=== PATIENT | male | born 1995 | race American Indian/Alaskan Native ===

== ENCOUNTER 2017-03-07 13:53 | Emergency (ER) | payer MEDICAID, OTHER ==
[2017-03-07 13:57] VITALS: BMI 26.6
[2017-03-07] MEDS ORDERED: Sodium Chloride 0.9% 1,000 ML IV STA (14:03)
[2017-03-07 14:08] VITALS: RESP 20; TEMP 98.5; O2SAT 100
--- NOTE | 2017-03-07 14:16 | ED PDOC ---
Arrival/HPI - General Chief Complaint: Substance Abuse Time Seen by Provider: 03/07/17 13:55 Historian: Patient - History of Present Illness Narrative History of Present Illness (Text): 03/07/17 14:00 A 21 year old male, who denies any significant past medical history, presents to the emergency department via EMS for substance overdose. The patient admits he used marijuana and ecstasy for recreational use. The patient denies any suicidal ideation, homicidal ideation, chest pain, fever, abdominal pain, or any other complaints at this time. Time/Duration: Prior to Arrival Symptom Onset: Sudden Symptom Course: Unchanged Activities at Onset: Significant (substance use ) Context: Home Past Medical History - Provider Review Nursing Documentation Reviewed: Yes - Infectious Disease Hx of Infectious Diseases: None - Psychiatric Hx Substance Use: Yes (weed) - Anesthesia Hx Anesthesia: No Family/Social History - Physician Review Nursing Documentation Reviewed: Yes Family/Social History: No Known Family HX Smoking Status: Heavy Smoker > 10 Cigarettes Daily Hx Alcohol Use: Yes Frequency of alcohol use: Socially Hx Substance Use: Yes (weed) Allergies/Home Meds Allergies/Adverse Reactions: Allergies shrimp Allergy (Severe, Verified 03/07/17 13:57) ANAPHYLAXIS Penicillins Allergy (Verified 03/07/17 13:57) ANGIOEDEMA Home Medications: Home Meds Medication Instructions Recorded Confirmed No Known Home Med 03/07/17 03/07/17 Review of Systems - Physician Review All systems were reviewed & negative as marked: Yes - Review of Systems Constitutional: absent: Fevers Cardiovascular: absent: Chest Pain Gastrointestinal: absent: Abdominal Pain Physical Exam Vital Signs Reviewed: Yes Vital Signs Temp Pulse Resp BP Pulse Ox 03/07/17 16:32 68 20 132/72 100 03/07/17 14:01 98.5 F 116 H 20 150/88 100 Temperature: Afebrile Blood Pressure: Normal Pulse: Tachycardic Respiratory Rate: Normal Appearance: Positive for: Well-Appearing, Non-Toxic, Comfortable Pain Distress: None Mental Status: Positive for: Alert and Oriented X 3 - Systems Exam Head: Present: Atraumatic, Normocephalic Pupils: Present: PERRL Extroacular Muscles: Present: EOMI Conjunctiva: Present: Normal Mouth: Present: Moist Mucous Membranes Neck: Present: Normal Range of Motion Respiratory/Chest: Present: Clear to Auscultation, Good Air Exchange. No: Respiratory Distress, Accessory Muscle Use Cardiovascular: Present: Tachycardic Abdomen: Present: Normal Bowel Sounds. No: Tenderness, Distention, Peritoneal Signs Back: Present: Normal Inspection Upper Extremity: Present: Normal Inspection. No: Cyanosis, Edema Lower Extremity: Present: Normal Inspection. No: Edema Neurological: Present: GCS=15, CN II-XII Intact, Speech Normal Skin: Present: Warm, Dry, Normal Color. No: Rashes Psychiatric: Present: Alert, Oriented x 3, Anxious Medical Decision Making ED Course and Treatment: 03/07/17 14:18 Impression: A 21 year old male with substance abuse. Differential Diagnosis included but are not limited to: Plan: -- EKG -- Chest X-ray -- Ativan, IV Fluids -- Urinalysis -- Reassess and disposition Progress Notes: 03/07/17 14:20 EKG: Ordered, reviewed, and independently interpreted the EKG. Rate : 131 BPM Rhythm : Sinus Tachycardia Interpretation : No ST-segment elevations or depressions, no T-wave inversions, normal intervals. Comparison : No previous EKG for comparison. 03/07/17 18:52 pt observed for 4 hours awake alert, no states feels well. steady gait. no si hi 03/07/17 18:52 - Lab Interpretations Lab Results: 03/07/17 14:00 03/07/17 14:00 Lab Results 03/07/17 14:55: Urine Opiates Screen Negative, Urine Methadone Screen Negative, Ur Barbiturates Screen Negative, Ur Phencyclidine Scrn Negative, Ur Amphetamines Screen Negative, U Benzodiazepines Scrn Negative, U Oth Cocaine Metabols Negative, U Cannabinoids Screen Positive H 03/07/17 14:55: Urine Color Yellow, Urine Appearance Clear, Urine pH 8.0, Ur Specific [place] 1.015, Urine Protein Negative, Urine Glucose (UA) Negative, Urine Ketones Negative, Urine Blood Trace-intact H, Urine Nitrate Negative, Urine Bilirubin Negative, Urine Urobilinogen 0.2, Ur Leukocyte Esterase Negative , Urine RBC 0 - 2, Urine WBC 1 - 3, Ur Epithelial Cells 0 - 2, Urine Bacteria Trace 03/07/17 14:00: Alcohol, Quantitative < 10 03/07/17 14:00: Salicylates < 1 L, Acetaminophen < 10.0 L 03/07/17 14:00: Sodium 140, Potassium 3.2 L, Chloride 102, Carbon Dioxide 22, Anion Gap 19, BUN 6 L, Creatinine 0.8, Est GFR ( Amer) > 60, Est GFR (Non -Af Amer) > 60, Random Glucose 134 H, Calcium 10.2, Total Bilirubin 0.7, AST 35 , ALT 27, Alkaline Phosphatase 80, Total Creatine Kinase 164, Total Protein 8.7 H, Albumin 5.0 H, Globulin 3.7, Albumin/Globulin Ratio 1.4 03/07/17 14:00: WBC 7.3, RBC 4.87, Hgb 15.3, Hct 43.6, MCV 89.5, MCH 31.4, MCHC 35.1, RDW 12.7, Plt Count 202, MPV 11.7 H, Gran % 42.9 L, Lymph % (Auto) 48.5 H , [place] % (Auto) 8.4 H, Eos % (Auto) 0.1 L, Baso % (Auto) 0.1, Gran # 3.14, Lymph # 3.6 H, [place] # 0.6, Eos # 0.0, Baso # 0.01 - RAD Interpretation Radiology Orders: 03/07/17 14:03 CHEST PORTABLE [RAD] Stat - Medication Orders Current Medication Orders: Discontinued Medications Sodium Chloride (Sodium Chloride 0.9%) 1,000 mls @ 999 mls/hr IV .Q1H1M STA Stop: 03/07/17 15:03 Last Admin: 03/07/17 14:16 Dose: 999 mls/hr eMAR Start Stop Document 03/07/17 14:16 [facility] [place] 03/07[place]17 14[place] [facility] [id number][place] Intravenous Solution Start Date 03/07/17 Start Time 14:16 End Date 03/07/17 End time 15:17 Total Infusion Time 61 Lorazepam (Ativan) 1 mg IVP STAT STA PRN Reason: Protocol Stop: 03/07/17 14:10 Last Admin: 03/07/17 14:16 Dose: 1 mg IVP Administration Document 03/07/17 14:16 [facility] [place]Rec[place] 03/07/17 14:17 [facility] [place] [id number][place] Charges for Administration # of IVP Administrations 1 Potassium Chloride (K-Dur 20 Meq Er Tab) 40 meq PO STAT STA Stop: 03/07/17 14:30 Last Admin: 03/07/17 14:41 Dose: 40 meq - Scribe Statement The provider has reviewed the documentation as recorded by the Eloisa Carmichael Provider Scribe Attestation: All medical record entries made by the Scribe were at my direction and personally dictated by me. I have reviewed the chart and agree that the record accurately reflects my personal performance of the history, physical exam, medical decision making, and the department course for this patient. I have also personally directed, reviewed, and agree with the discharge instructions and disposition. Disposition/Present on Arrival - Present on Arrival Any Indicators Present on Arrival: No History of DVT/PE: No History of Uncontrolled Diabetes: No Urinary Catheter: No History of Decub. Ulcer: No History Surgical Site Infection Following: None - Disposition Have Diagnosis and Disposition been Completed?: Yes Diagnosis: Substance abuse Disposition: HOME/ ROUTINE Disposition Time: 06:50 Condition: STABLE Referrals: PCP,NO [Non-Staff] - Follow up with primary Forms: [employer] (Indonesian)
[2017-03-07 14:20] LABS: BASO # 0.01 K/mm3 (0.0-2.0); BASO % 0.1 % (0.0-3.0); EOS % 0.1 % (1.5-5.0); GRAN # 3.14 (1.4-6.5); GRAN % 42.9 % (50.0-68.0); HEMATOCRIT 43.6 % (42.0-52.0); LYMPH # 3.6 (1.2-3.4); LYMPH % 48.5 % (22.0-35.0); MEAN CELL VOLUME 89.5 fl (80.0-105.0); MEAN CORPUSCULAR HEMOGLOBIN 31.4 pg (25.0-35.0); MEAN CORPUSCULAR HGB CONC 35.1 g/dl (31.0-37.0); MEAN PLATELET VOLUME 11.7 fl (7.0-11.0); MONO # 0.6 (0.1-0.6); MONO % 8.4 % (1.0-6.0); RED CELL DISTRIBUTION WIDTH 12.7 % (11.5-14.5); WHITE BLOOD COUNT 7.3 10^3/ul (4.5-11.0)
[2017-03-07 14:28] LABS: ALB/GLOB RATIO 1.4 (1.1-1.8); ALKALINE PHOSPHATASE 80 U/L (38-126); ALT/SGPT 27 U/L (7-56); AST/SGOT 35 U/L (17-59); BILIRUBIN,TOTAL 0.7 mg/dL (0.2-1.3); BLOOD UREA NITROGEN 6 mg/dL (7-21); CALCIUM 10.2 mg/dL (8.4-10.5); CARBON DIOXIDE 22 mmol/L (21-33); CHLORIDE 102 mmol/L (98-107); GFR AFRICAN-AMERICAN > 60; GLUCOSE,RANDOM 134 mg/dL (70-110); POTASSIUM 3.2 mmol/L (3.6-5.0); SODIUM 140 mmol/L (132-148); TOTAL PROTEIN 8.7 g/dL (5.8-8.3)
[2017-03-07] MEDS ORDERED: Potassium Chloride 20 mEq ER Tab PO STA (14:29)
--- NOTE | 2017-03-07 15:01 | RAD ---
HISTORY: PYSCH COMPARISON: No prior. FINDINGS: LUNGS: No definitive active pulmonary disease. Patient's left hand obscures left base. PLEURA: No significant pleural effusion identified, no pneumothorax apparent. CARDIOVASCULAR: Normal. OSSEOUS STRUCTURES: No significant abnormalities. VISUALIZED UPPER ABDOMEN: Normal. OTHER FINDINGS: None. IMPRESSION: No definite acute cardiopulmonary disease appreciated. The patient's left hand obscures the left base.
[2017-03-07 15:12] LABS: URINE BILIRUBIN NEGATIVE (NEGATIVE); URINE BLOOD TRACE-INTACT (NEGATIVE); URINE GLUCOSE (UA) NEGATIVE (NEGATIVE); URINE KETONE NEGATIVE (NEGATIVE); URINE LEUKOCYTE ESTERASE NEGATIVE Leu/uL (NEGATIVE); URINE PROTEIN NEGATIVE mg/dL (<30 mg/dL); URINE UROBILINOGEN 0.2 E.U./dL (<1 E.U./dL)
[2017-03-07 15:15] LABS: URINE APPEARANCE CLEAR (CLEAR); URINE COLOR YELLOW (YELLOW)
[2017-03-07 15:28] LABS: URINE BACTERIA TRACE (NEG); URINE EPITHELIAL CELLS 0 - 2 /hpf (0-5); URINE RBC 0 - 2 /hpf (0-2)
[2017-03-07 16:35] VITALS: BP 132/72; PULSE 68
--- NOTE | 2017-03-08 07:42 | CARD ---
APPROVED REPORT EKG Measurement Heart [id number] ID [id number] <Conclusion> Sinus tachycardia STTW changes c/w ischemia Prolonged QTc
== END 2017-03-07 17:39 | disposition home or self-care (01) ==
LOC: ED 13:53
DX: F19.10 Other psychoactive substance abuse, uncomplicated (principal); F17.210 Nicotine dependence, cigarettes, uncomplicated; Z88.0 Allergy status to penicillin
CPT/HCPCS: 71010; 80053; 81001; 82550; 85025; 93005; 96361; 96374; 99283; G0480; J2060; J7040

== ENCOUNTER 2017-03-08 23:59 | Emergency (ER) | payer MEDICAID ==
[2017-03-09] VITALS: BMI 26.6
[2017-03-09 00:10] VITALS: TEMP 97.9
[2017-03-09 00:20] VITALS: BP 149/84; PULSE 89; RESP 20; O2SAT 100
[2017-03-09] MEDS ORDERED: Sucralfate 1 gm/10 ml Oral Susp UD PO STA (00:47)
--- NOTE | 2017-03-09 00:51 | ED PDOC ---
Arrival/HPI - General Chief Complaint: Anxiety Time Seen by Provider: 03/09/17 00:43 Historian: Patient - History of Present Illness Narrative History of Present Illness (Text): 03/09/17 01:47 21yo male complaining of "burning" chest pain x days. He was seen at [facility] this morning for same complaint and was Dc home with Pepcid after negative test. States he came to the emergency department because he started having the burning pain again and feels anxious. He otherwise denies dizziness, visual changes, SOB, diaphoresis, LE edema, calf pain, any other complaint. Past Medical History - Provider Review Nursing Documentation Reviewed: Yes - Infectious Disease Hx of Infectious Diseases: None - Psychiatric Hx Substance Use: Yes (Marijuana and Ecstasy/2 days ago) - Surgical History Other/Comment: maxillofacial surgery - Anesthesia Hx Anesthesia: Yes Hx Anesthesia Reactions: No Family/Social History - Physician Review Nursing Documentation Reviewed: Yes Family/Social History: Unknown Family HX Smoking Status: Heavy Smoker > 10 Cigarettes Daily Hx Alcohol Use: No Hx Substance Use: Yes (Marijuana and Ecstasy/2 days ago) Substance used: marajuana, ecstacy Allergies/Home Meds Allergies/Adverse Reactions: Allergies Penicillins Allergy (Verified 03/09/17 00:03) RASH shrimp Allergy (Verified 03/09/17 00:03) RASH Home Medications: Home Meds Medication Instructions Recorded Confirmed No Known Home Med 03/07/17 03/09/17 Review of Systems - Physician Review All systems were reviewed & negative as marked: Yes - Review of Systems Constitutional: Normal Eyes: Normal ENT: Normal Respiratory: Normal Cardiovascular: Chest Pain Gastrointestinal: Normal Genitourinary Male: Normal Musculoskeletal: Normal Skin: Normal Neurological: Normal Endocrine: Normal Hemo/Lymphatic: Normal Psychiatric: Normal Physical Exam Vital Signs Reviewed: Yes Vital Signs Temp Pulse Resp BP Pulse Ox 03/09/17 00:19 89 20 149/84 100 03/09/17 00:08 97.9 F Temperature: Afebrile Blood Pressure: Normal Pulse: Regular Respiratory Rate: Normal Appearance: Positive for: Well-Appearing, Non-Toxic, Comfortable Pain Distress: None Mental Status: Positive for: Alert and Oriented X 3 - Systems Exam Head: Present: Atraumatic, Normocephalic Pupils: Present: PERRL Extroacular Muscles: Present: EOMI Conjunctiva: Present: Normal Mouth: Present: Moist Mucous Membranes Neck: Present: Normal Range of Motion Respiratory/Chest: Present: Clear to Auscultation, Good Air Exchange. No: Respiratory Distress, Accessory Muscle Use Cardiovascular: Present: Regular Rate and Rhythm, Normal S1, S2. No: Murmurs Abdomen: Present: Normal Bowel Sounds. No: Tenderness, Distention, Peritoneal Signs Back: Present: Normal Inspection Upper Extremity: Present: Normal Inspection. No: Cyanosis, Edema Lower Extremity: Present: Normal Inspection. No: Edema Neurological: Present: GCS=15, CN II-XII Intact, Speech Normal Skin: Present: Warm, Dry, Normal Color. No: Rashes Psychiatric: Present: Alert, Oriented x 3, Normal Insight, Normal Concentration Medical Decision Making ED Course and Treatment: 03/09/17 01:49 Pt in emergency department for stated history. He was hemodynamically stable. His lab from [facility] was reviewed. EKG NSR @95bpm with no ST changes. Pt was treated with caralfate and ativan in emergency department His symptoms improved on re evaluation He was advised to follow up with his PMD for further outp work up - Medication Orders Current Medication Orders: Discontinued Medications Lorazepam (Ativan) 0.5 mg PO ONCE ONE PRN Reason: Protocol Stop: 03/09/17 00:48 Last Admin: 03/09/17 01:22 Dose: 0.5 mg Sucralfate (Carafate Oral Susp) 1 gm PO STAT STA Stop: 03/09/17 00:48 Last Admin: 03/09/17 01:22 Dose: 1 gm Disposition/Present on Arrival - Present on Arrival Any Indicators Present on Arrival: No History of DVT/PE: No History of Uncontrolled Diabetes: No Urinary Catheter: No History of Decub. Ulcer: No History Surgical Site Infection Following: None - Disposition Have Diagnosis and Disposition been Completed?: Yes Diagnosis: Chest pain Disposition: HOME/ ROUTINE Disposition Time: 01:50 Patient Plan: Discharge Patient Problems: Current Active Problems Problem Status Onset Chest pain Acute Condition: STABLE Discharge Instructions (ExitCare): Chest Pain (ED) Additional Instructions: Follow up with your doctor Return to emergency department for any new symptoms Referrals: [facility] at [facility] [place] [Outside] - Follow up with primary Forms: [employer] (Albanian)
--- NOTE | 2017-03-09 11:09 | CARD ---
APPROVED REPORT EKG Measurement Heart [id number] <Conclusion> Normal sinus rhythm with sinus arrhythmia T wave abnormality, consider inferior ischemia LVH by voltage
== END 2017-03-09 01:30 | disposition home or self-care (01) ==
LOC: ED 23:59
DX: R07.9 Chest pain, unspecified (principal); F17.210 Nicotine dependence, cigarettes, uncomplicated; Z88.0 Allergy status to penicillin